=== PATIENT | female | born 1990 | race Two or more races ===

== ENCOUNTER 2024-10-29 15:32 | Inpatient (IN) | payer OTHER ==
[~2024-10-29] VITALS: Ht 167.6 cm; Wt 3.6 kg
[2024-10-29 15:36] VITALS: BP 116/82
[2024-10-29] MEDS ORDERED: RINGERS SOLUTION,LACTATED 1,000 ML IV SCH (16:00)
[2024-10-29] MEDS ORDERED: PRENATAL TABLE1 EAC1 PO (16:16)
[2024-10-29 16:53] LABS: HEMATOCRIT 37.5 % (36.0-45.00); HEMOGLOBIN 12.5 g/dL (12.0-15.00); MEAN CELL VOLUME 88.2 fL (80.00-100.00); MEAN CORPUSCULAR HEMOGLOBIN 29.3 pg (27.00-32.0); MEAN CORPUSCULAR HGB CONC 33.2 g/dl (32.0-36.0); PLATELET COUNT 191 K/uL (150-450); RED BLOOD COUNT 4.25 M/uL (4.00-6.00)
[2024-10-29 16:55] LABS: URINE APPEARANCE Clear; URINE BILIRRUBIN Negative (NEGATIVE); URINE BLOOD Negative; URINE COLOR Yellow; URINE GLUCOSE Negative (NEGATIVE); URINE KETONE Negative (NEGATIVE); URINE LEUKOCYTE Negative; URINE NITRATE Negative; URINE PROTEIN Negative (NEGATIVE); URINE UROBILINOGEN 0.2 E.U./dl
[2024-10-29 16:56] LABS: URINE BACTERIA 118.6 uL (0.0-1933); URINE EPITHELIAL CELLS 3.3 uL (0.0-38.8); URINE WBC 3.9 uL (0.0-23.2)
[2024-10-29 16:59] LABS: URINE CAST 0.14 uL (0.0-1.40); URINE RBC 0.1 uL (0.0-20.8)
[2024-10-29 17:20] LABS: ALBUMIN 2.6 gm/dL (3.4-5.0); BILIRUBIN TOTAL 0.33 mg/dL (0.3-1.2); CALCIUM 8.9 mg/dL (8.5-10.1); CREATININE SERUM 0.73 mg/dL (0.55-1.02); GFR 91.26; GLOBULINA 3.7 G/DL (2.4-3.5); POTASSIUM 4.39 mEq/L (3.5-5.1); TOTAL PROTEIN 6.3 gm/dL (6.4-8.2)
[2024-10-29 17:30] LABS: INR 0.94; PARTIAL THROMBOPLASTIN TIME 26.5 SECONDS (22.0-34.0); PROTHROMBIN TIME 10.3 SECONDS (9.0-11.5)
[2024-10-29 20:26] VITALS: BP 110/69
[2024-10-29] MEDS ORDERED: FAMOTIDINE/PF 20 MG/2 ML VIAL IV PUSH PRN (20:45)
[2024-10-29 23:26] VITALS: BP 106/62
[2024-10-30 04:00] VITALS: BP 99/64
[2024-10-30 06:10] VITALS: BP 106/71; O2SAT 100
[2024-10-30 08:28] VITALS: BP 106/71
[2024-10-30 11:15] VITALS: BP 105/70
[2024-10-30 13:55] VITALS: BP 129/81
[2024-10-30 16:18] VITALS: BP 123/85
[2024-10-30 17:07] LABS: URINE PROT QUANT 24HR 6.7 MG/DL
[2024-10-30 18:07] LABS: URINE PROT QUANT 24 HR 190.95 MG/24HR (42-225)
[2024-10-30 18:28] LABS: CREATINE CLEARANCE 126.9 ML/MIN (97-137); CREATININE SERUM 0.73 mg/dL (0.6-1.0)
[2024-10-31 01:14] VITALS: BP 101/65
[2024-10-31 08:31] VITALS: BP 117/76
[2024-10-31] MEDS ORDERED: CLINDAMYCIN PHOSPHATE 150 MG/ML (900mg) IV NR (12:00)
[2024-10-31 16:06] VITALS: BP 115/73
[2024-10-31] MEDS ORDERED: OXYTOCIN 10 UNITS/ML VIAL ONE ×2 (18:05→21:39)
[2024-10-31] MEDS ORDERED: ERYTHROMYCIN BASE OPHT 1GM EACH TUBE OP ONE (18:06)
[2024-10-31] MEDS ORDERED: KETOROLAC TROMETHAMINE 30 MG VIAL IV PRN (20:15)
[2024-10-31] MEDS ORDERED: PROMETHAZINE HCL 25 MG/ML AMPUL IV PRN (20:15)
[2024-10-31] MEDS ORDERED: OXYTOCIN 1,000 ML IV SCH (20:15)
[2024-10-31] MEDS ORDERED: MEPERIDINE HCL/PF 25 MG/ML VIAL IV PRN (20:15)
[2024-10-31 22:08] VITALS: BP 103/69
[2024-10-31] MEDS ORDERED: KETOROLAC TROMETHAMINE 30 MG VIAL ONE (23:35)
[2024-11-01] VITALS: BP 107/64
[2024-11-01 01:42] LABS: HEMATOCRIT 37.4 % (36.0-45.00); HEMOGLOBIN 12.5 g/dL (12.0-15.00); MEAN CELL VOLUME 87.1 fL (80.00-100.00); MEAN CORPUSCULAR HEMOGLOBIN 29.1 pg (27.00-32.0); MEAN CORPUSCULAR HGB CONC 33.4 g/dl (32.0-36.0); PLATELET COUNT 168 K/uL (150-450); RED BLOOD COUNT 4.29 M/uL (4.00-6.00); RED CELL DISTRIBUTION WIDTH 13.8 % (11.5-14.5)
[2024-11-01 07:43] VITALS: BP 95/71
[2024-11-01] MEDS ORDERED: SIMETHICONE 125 MG CAPSULE PO SCH (09:00)
[2024-11-01] MEDS ORDERED: IBUprofen 800 MG TABLET PO PRN (09:00)
[2024-11-01] MEDS ORDERED: OxyCODONE HCL/APAP UD (PERCOCET) PO PRN (09:00)
[2024-11-01] MEDS ORDERED: DOCUSATE SODIUM 100MG CAP PO SCH (09:00)
[2024-11-01 14:59] VITALS: BP 112/75
[2024-11-02 01:33] VITALS: BP 114/71
[2024-11-02 08:06] VITALS: BP 111/72
[2024-11-02 15:49] VITALS: BP 131/82
[2024-11-03] VITALS: BP 108/58
[2024-11-03 08:00] VITALS: BP 127/86
[2024-11-03 16:15] VITALS: BP 115/74
[2024-11-03] MEDS ORDERED: SENNA/DOCUSATE SODIUM 1 TAB TABLET PO SCH (21:00)
[2024-11-04 00:47] VITALS: BP 111/71
[2024-11-04 08:48] VITALS: BP 110/79
[2024-11-04] MEDS ORDERED: POLYETHYLENE GLYCOL 3350 17 GM BLIST.PACK PO STA (10:08)
[2024-11-04] MEDS ORDERED: DOCUSATE SODIUM 100MG CAP PO SCH (10:39)
[2024-11-04 15:57] VITALS: BP 130/77
[2024-11-05 01:38] VITALS: BP 129/79
[2024-11-05 08:46] VITALS: BP 140/85
[2024-11-05 16:56] VITALS: BP 139/75
[2024-11-06 00:02] VITALS: BP 110/69
[2024-11-06 08:18] VITALS: BP 115/75
== END 2024-11-06 13:20 | disposition home or self-care (01) | DRG 788 ==
LOC: OBS/DEL 15:32 → LDR 10-30 08:47 → OB/GYN 10-30 08:47
PROVIDERS: ADMIT Student in an Organized Health Care Education/Training Program; ATTEND Student in an Organized Health Care Education/Training Program
PROC: BY4FZZZ Ultrasonography of Third Trimester, Single Fetus (ICD-10-PCS; 2024-10-30)
PROC: 4A1HXCZ Monitoring of Products of Conception, Cardiac Rate, External Approach (ICD-10-PCS; 2024-10-30)
PROC: 10D00Z1 Extraction of Products of Conception, Low, Open Approach (ICD-10-PCS; principal; 2024-10-31 18:00)
DX: O32.1XX0 Maternal care for breech presentation, not applicable or unspecified (principal); O14.94 Unspecified pre-eclampsia, complicating childbirth; O26.843 Uterine size-date discrepancy, third trimester; O36.8130 Decreased fetal movements, third trimester, not applicable or unspecified; O13.4 Gestational [pregnancy-induced] hypertension without significant proteinuria, complicating childbirth; Z3A.37 37 weeks gestation of pregnancy; Z37.0 Single live birth